=== PATIENT | female | born 1985 | race Caucasian/White ===

== ENCOUNTER 2017-02-06 16:19 | Emergency (ER) | payer BC ==
[2017-02-06 16:28] VITALS: BP 112/66
[2017-02-06] MEDS ORDERED: BSS OPTH.SOL* BTL ONE (16:32)
[2017-02-06] MEDS ORDERED: Fluorescein Sodium TOPICAL* 1 MG TEST ONE (16:32)
[2017-02-06] MEDS ORDERED: Tetracaine 0.5% OPTH.SOL 4 ML* 1 DROP BTL ONE (16:33)
--- NOTE | 2017-02-06 16:44 | UC ---
Eye Complaint HPI - HPI Summary HPI Summary: complaint of left eye pain after poked in the eye by daughters fingernail feels irritated and slightly painful eye is tearing occasionally denies vision changes doesn't wear contact lenses hasn't taken any medications for pain - History of Current Complaint Chief Complaint: UCEye Stated Complaint: EYE COMPLAINT Time Seen by Provider: 02/06/17 16:35 Hx Obtained From: Patient Hx Last Menstrual Period: 05/2015 - Allergies/Home Medications Allergies/Adverse Reactions: Allergies Allergy/AdvReac Type Severity Reaction Status Date / Time No Known Allergies Allergy Verified 02/06/17 16:28 PMH/Surg Hx/FS Hx/Imm Hx Previously Healthy: Yes Endocrine History: Hypothyroidism - Surgical History Surgical History: None - Family History Known Family History: Negative: Cardiac Disease, Hypertension, Diabetes - Social History Occupation: Employed Full-time Lives: With Family Alcohol Use: None Substance Use Type: None Smoking Status (MU): Never Smoked Tobacco - Immunization History Most Recent Influenza Vaccination: currently not flu season Most Recent Tetanus Shot: 12/11/15 Most Recent Pneumonia Vaccination: not indicated Review of Systems Constitutional: Negative Skin: Negative Eyes: Drainage, Eye Redness ENT: Negative Respiratory: Negative Cardiovascular: Negative Gastrointestinal: Negative Genitourinary: Negative Motor: Negative Neurovascular: Negative Musculoskeletal: Negative Neurological: Negative Psychological: Negative All Other Systems Reviewed And Are Negative: Yes Physical Exam Triage Information Reviewed: Yes Appearance: No Pain Distress, Well-Nourished Vital Signs: Initial Vital Signs Temp 98.5 F 02/06/17 16:25 Pulse 85 02/06/17 16:25 Resp 14 02/06/17 16:25 BP 112/66 02/06/17 16:25 Pulse Ox 99 02/06/17 16:25 Vital Signs Reviewed: Yes Eyes: Positive: Conjunctiva Clear, Other: - left eye observed under fluoriscene - no abrasions or foreign objects in left eye. Negative: Discharge ENT: Positive: Pharynx normal, TMs normal Neck: Positive: No Lymphadenopathy Respiratory: Positive: Lungs clear, Normal breath sounds, No respiratory distress, No accessory muscle use Cardiovascular: Positive: RRR, No Murmur, Pulses Normal Abdomen Description: Positive: Nontender, Soft Bowel Sounds: Positive: Present Musculoskeletal Exam: Normal Neurological: Positive: Alert Psychological Exam: Normal Skin Exam: Normal Eye Complaint Course/Dx - Course Course Of Treatment: exam completed. pain resolved with tetracaine. no corneal abrasion observed - Differential Dx/Diagnosis Differential Diagnosis/HQI/PQRI: Conjunctivitis, Corneal Abrasion, Other Provider Diagnoses: right eye irritation Discharge - Discharge Plan Condition: Stable Disposition: HOME Prescriptions: Erythromycin OPTH OINT* 1 applic LEFT EYE TID #1 ophth.oint Patient Education Materials: Eye Pain (ED) Referrals: No Primary Care Phys,NOPCP [Primary Care Provider] - [facility] [place] [facility] [Outside] Additional Instructions: Please start antibiotic eye ointment as directed Increase fluids and rest Take acetaminophen or ibuprofen for fever or pain Please review your discharge instructions. If your symptoms do not improve please call your primary care provider or return to urgent care.
== END 2017-02-06 16:57 | disposition home or self-care (01) ==
LOC: UCCORT 16:19
DX: H57.8 Other specified disorders of eye and adnexa (principal); E03.9 Hypothyroidism, unspecified
CPT/HCPCS: 99212; A9270-GY; G0463

== ENCOUNTER 2017-05-29 07:34 | Emergency (ER) | payer BC ==
[2017-05-29 07:50] VITALS: BP 99/65
--- NOTE | 2017-05-29 08:09 | UC ---
Eye Complaint HPI - HPI Summary HPI Summary: One day history of eye irritation with scant discharge. No photophobia or headache associated. No history of allergies, and does not have ear or throat symptoms. Co-worker treated for conjuncitivits, has toddler at home. - History of Current Complaint Chief Complaint: UCEye Stated Complaint: PINK EYE Time Seen by Provider: 05/29/17 07:59 Hx Obtained From: Patient Hx Last Menstrual Period: ~05/19/17 ?: No Onset/Duration: Gradual Onset - over the past day Timing: Constant Severity Initially: Mild Severity Currently: Mild Location of Injury: Conjunctiva Aggravating Factor(s): Nothing Alleviating Factor(s): Nothing Associated Signs And Symptoms: Positive: Drainage (Clear) - Risk Factors Penetrating Injury Risk Factor: Negative Globe Rupture Risk Factors: Negative - Allergies/Home Medications Allergies/Adverse Reactions: Allergies Allergy/AdvReac Type Severity Reaction Status Date / Time No Known Allergies Allergy Verified 05/29/17 07:45 Home Medications: Home Medications Levothyroxine TAB* [Synthroid TAB*] 100 mcg PO BEDTIME 05/29/17 [History Confirmed 05/29/17] PMH/Surg Hx/FS Hx/Imm Hx Previously Healthy: Yes Endocrine History: Hypothyroidism - x 3 years - Surgical History Surgical History: None - Family History Known Family History: Positive: Hypertension, Other - hypothyroidism Negative: Cardiac Disease, Diabetes - Social History Occupation: Employed Full-time Lives: With Family Alcohol Use: Rare Substance Use Type: None Smoking Status (MU): Never Smoked Tobacco - Immunization History Most Recent Influenza Vaccination: Not the 2016/2017 Season Most Recent Tetanus Shot: 12/11/15 Most Recent Pneumonia Vaccination: not indicated Review of Systems Constitutional: Negative Skin: Negative Eyes: Blurred Vision, Other - itching ENT: Negative Respiratory: Negative Cardiovascular: Negative Gastrointestinal: Negative Genitourinary: Negative Motor: Negative Neurovascular: Negative Musculoskeletal: Negative Neurological: Negative Psychological: Negative Is Patient Immunocompromised?: Yes All Other Systems Reviewed And Are Negative: Yes Physical Exam Triage Information Reviewed: Yes Appearance: Well-Appearing Vital Signs: Initial Vital Signs Temp 98.1 F 05/29/17 07:43 Pulse 90 05/29/17 07:43 Resp 16 05/29/17 07:43 BP 99/65 05/29/17 07:43 Pulse Ox 98 10/15/17 07:43 Eyes: Positive: Conjunctiva Inflamed, Other: - no photophobia ENT: Positive: Pharynx normal, TMs normal Dental Exam: Normal Neck: Positive: Supple, Nontender, No Lymphadenopathy Respiratory: Positive: Lungs clear, Normal breath sounds Cardiovascular: Positive: RRR, No Murmur Neurological Exam: Normal Psychological Exam: Normal Skin Exam: Normal Eye Complaint Course/Dx - Course Course Of Treatment: eye drops for conjunctivitis - Differential Dx/Diagnosis Provider Diagnoses: bilateral conjunctivitis Discharge - Discharge Plan Condition: Stable Disposition: HOME Prescriptions: Tobramycin 0.3% OPHTH.LEONARDO* 2 drop BOTH EYES Q4H #1 btl Patient Education Materials: Conjunctivitis (ED) Additional Instructions: Use eye drops every 2 hours while awake today, compressing your eyes before applying the drops. Hand wash a lot to prevent spread to your toddler.
== END 2017-05-29 08:26 | disposition home or self-care (01) ==
LOC: UCCORT 07:34
DX: H10.9 Unspecified conjunctivitis (principal); E03.9 Hypothyroidism, unspecified
CPT/HCPCS: 99212; G0463

== ENCOUNTER 2018-01-29 17:49 | Emergency (ER) | payer BC ==
[2018-01-29 18:24] VITALS: BP 119/64
--- NOTE | 2018-01-29 19:02 | UC ---
UC General HPI - HPI Summary HPI Summary: Pt is concerned about rash on abdomen and forearms. Pt has known exposure to hand foot mouth disease. - History of Current Complaint Chief Complaint: PILYkin Stated Complaint: HAND,FOOT,MOUTH SYMPTOMS Time Seen by Provider: 01/29/18 18:42 Hx Obtained From: Patient Hx Last Menstrual Period: 01/16/18 Onset/Duration: Sudden Onset, Still Present Onset Severity: Mild Current Severity: Mild Pain Intensity: 0 - Allergy/Home Medications Allergies/Adverse Reactions: Allergies Allergy/AdvReac Type Severity Reaction Status Date / Time No Known Allergies Allergy Verified 01/29/18 18:25 PMH/Surg Hx/FS Hx/Imm Hx Previously Healthy: Yes - Surgical History Surgical History: None - Family History Known Family History: Positive: Hypertension, Other - hypothyroidism Negative: Cardiac Disease, Diabetes - Social History Occupation: Employed Full-time Lives: With Family Alcohol Use: Rare Substance Use Type: None Smoking Status (MU): Never Smoked Tobacco Have You Smoked in the Last Year: No - Immunization History Most Recent Influenza Vaccination: Not the Season Most Recent Tetanus Shot: 12/11/15 Most Recent Pneumonia Vaccination: not indicated Review of Systems Constitutional: Negative Skin: Rash Eyes: Negative ENT: Negative Respiratory: Negative Cardiovascular: Negative Gastrointestinal: Negative Genitourinary: Negative Motor: Negative Neurovascular: Negative Musculoskeletal: Negative Neurological: Negative Psychological: Negative Is Patient Immunocompromised?: No All Other Systems Reviewed And Are Negative: Yes Physical Exam Triage Information Reviewed: Yes Appearance: Well-Appearing Vital Signs: Initial Vital Signs Temp 98.1 F 01/29/18 18:21 Pulse 85 01/29/18 18:21 Resp 18 01/29/18 18:21 BP 119/64 01/29/18 18:21 Pulse Ox 100 01/29/18 18:21 Vital Signs Reviewed: Yes Eye Exam: Normal ENT Exam: Normal Dental Exam: Normal Neck exam: Normal Respiratory Exam: Normal Cardiovascular Exam: Normal Musculoskeletal Exam: Normal Neurological Exam: Normal Psychological Exam: Normal Skin: Positive: rashes - pin prick , erythematous, rash on abdomen and forearms (3-4) Course/Dx - Differential Dx - Multi-Symptom Provider Diagnoses: rash Discharge - Sign-Out/Discharge Documenting (check all that apply): Discharge/Admit/Transfer - Discharge Plan Condition: Stable Disposition: HOME Patient Education Materials: Acute Rash (ED) Referrals: [facility] [place] [facility] [Outside] No Primary Care Phys,NOPCP [Primary Care Provider] - - Billing Disposition and Condition Condition: STABLE Disposition: Home
== END 2018-01-29 19:10 | disposition home or self-care (01) ==
LOC: UCCORT 17:49
DX: R21 Rash and other nonspecific skin eruption (principal)
CPT/HCPCS: 99211; G0463